=== PATIENT | female | born 1980 | race Caucasian/White ===

== ENCOUNTER → 2021-10-05 | Outpatient (CLI) | payer BC | LOC: EMI 14:30 → MRI 10-12 14:00 | DX: H46.10 Retrobulbar neuritis, unspecified eye (principal) | CPT/HCPCS: 70543; 70553; A9577 ==

== ENCOUNTER → 2021-11-14 | Outpatient (CLI) | payer BC ==
[2021-11-14 19:39] LABS: HEMOGLOBIN 12.9 gm/dl (12.3-15.3); RED BLOOD COUNT 4.24 M/UL (4.00-5.10); WHITE BLOOD COUNT 5.1 K/UL (4.5-11.0)
[2021-11-16 15:15] LABS: ANGIOTENSIN-CONVERTING ENZYME 66 U/L (14-82); LYME IGG/IGM AB <0.91 ISR (0.00-0.90)
[2021-11-16 17:09] LABS: T PALLIDUM AB (FTA-AB) Non Reactive (Non Reactive); TREPONEMA PALLIDUM ANTIBODIES Non Reactive (Non Reactive)
[2021-11-16 19:09] LABS: ATYPICAL PANCA <1:20 titer (Neg:<1:20); CYTOPLASMIC (C-ANCA) <1:20 titer (Neg:<1:20); PERINUCLEAR (P-ANCA) <1:20 titer (Neg:<1:20)
[2021-11-16 21:09] LABS: QUANTIFERON MITOGEN VALUE >10.00 IU/mL (.); QUANTIFERON NIL VALUE 0.06 IU/mL (.); QUANTIFERON TB1 AG VALUE 0.05 IU/mL (.); QUANTIFERON TB2 AG VALUE 0.05 IU/mL (.); QUANTIFERON-TB GOLD PLUS Negative (Negative)
== END ==
LOC: LAB 18:59
PROVIDERS: Ophthalmology
DX: Z53.9 Procedure and treatment not carried out, unspecified reason (principal)
CPT/HCPCS: 82164; 85025; 85652; 86038; 86140; 86256; 86618; 86780

== ENCOUNTER → 2021-11-15 | Outpatient (CLI) | payer BC | LOC: MRI 13:09 | DX: H47.20 Unspecified optic atrophy (principal); J32.0 Chronic maxillary sinusitis | CPT/HCPCS: 70543; A9577 ==

== ENCOUNTER → 2022-01-05 | Outpatient (CLI) | payer BC ==
[~2022-01-05] VITALS: Ht 177.8 cm; Wt 77.1 kg
== END ==
LOC: OPSV 13:00
DX: H46.9 Unspecified optic neuritis (principal)
CPT/HCPCS: 96365; J2930; J7070

== ENCOUNTER → 2022-01-09 | Outpatient (CLI) | payer BC | LOC: OPSV 12:00 | DX: H46.9 Unspecified optic neuritis (principal); F17.200 Nicotine dependence, unspecified, uncomplicated | CPT/HCPCS: 96365; J2930; J7070 ==

== ENCOUNTER → 2022-02-03 | Outpatient (CLI) | payer BC ==
[2022-02-03 09:50] LABS: GLUCOSE,CSF 51 mg/dL (50-80); TOTAL PROTEIN,CSF 32 mg/dL (20-45)
[2022-02-03 10:20] LABS: RBC (AUTOMATED) 0 10^6 (0); WBC (AUTOMATED 2 10^3 (0-5)
[2022-02-03 10:21] LABS: RBC (AUTOMATED) 0 10^6 (0); WBC (AUTOMATED 1 10^3 (0-5)
[2022-02-06 18:11] LABS: MYELIN BASIC PROTEIN, CSF 5.1 ng/mL (0.0-3.7)
[2022-02-07 14:14] LABS: CSF IGG INDEX 0.4 (0.0-0.7); IMMUNOGLOBULIN G, QN, SERUM 707 mg/dL (586-1602)
== END | disposition home or self-care (01) ==
LOC: RAD 07:43
PROVIDERS: Psychiatry & Neurology Neurology
DX: H46.9 Unspecified optic neuritis (principal)
CPT/HCPCS: 82040; 82784; 82945; 83520; 83873; 83916; 84157; 87015; 87070; 87116; 87205; 87210; 89051